=== PATIENT | male | born 1970 | race Caucasian/White ===

== ENCOUNTER 2021-04-03 17:01 | Emergency (ER) | payer SELFPAY ==
[~2021-04-03 17:01] MED LIST: BACTRIM DS TAB1 EACH PO; BACTROBAN OINT22 GM EXT; NAPROSYN500 MG PO
[2021-04-03 17:52] LABS: HEMOGLOBIN 15.3 gm/dl (14.0-17.5); RED BLOOD COUNT 4.73 M/UL (4.20-5.50)
[2021-04-03 18:06] LABS: BUN/CREATININE RATIO 12 (0-10)
== END 2021-04-03 18:30 | disposition home or self-care (01) ==
LOC: ER1 17:01
PROVIDERS: Emergency Medicine
DX: S06.0X9A Concussion with loss of consciousness of unspecified duration, initial encounter (principal); S20.212A Contusion of left front wall of thorax, initial encounter; S40.012A Contusion of left shoulder, initial encounter; S00.91XA Abrasion of unspecified part of head, initial encounter; Y08.02XA Assault by strike by baseball bat, initial encounter; Y93.64 Activity, baseball
CPT/HCPCS: 70450; 71260; 72125; 80053; 85025; 99284; Q9967

== ENCOUNTER 2022-06-25 22:58 | Emergency (ER) | payer OTHER ==
[2022-06-25] MEDS ORDERED: NAPROXEN500 MG PO (23:12)
== END 2022-06-25 23:16 | disposition home or self-care (01) ==
LOC: ER1 22:58
DX: S69.91XA Unspecified injury of right wrist, hand and finger(s), initial encounter (principal); F17.200 Nicotine dependence, unspecified, uncomplicated; J44.9 Chronic obstructive pulmonary disease, unspecified; X58.XXXA Exposure to other specified factors, initial encounter
CPT/HCPCS: 99282